=== PATIENT | female | born 1975 | race Caucasian/White ===

== ENCOUNTER → 2017-04-29 | Day surgery (SDC) | payer OTHER ==
[~2017-04-29] MED LIST: BUPIVACAINE/EPINEPHRINE 0.5% 50 ML VIAL ONE; HEPARIN SODIUM - IV 10,000 UNITS/10 ML VIAL ONE; LACTATED RINGER'S 1000 ML INJ 1,000 ML ONE; MIDAZOLAM HCL 2 MG/2 ML VIAL ONE; PROPOFOL 200 MG/20 ML AMP IV ONE; SODIUM CHLORIDE 0.9% INJ 10 ML ONE; ceFAZolin 2 GM PREMIX 50 ML ONE
--- NOTE | 2017-04-29 13:59 | TN ---
cc: CLAUDETTE BLACKMAN M.D. DATE OF SURGERY: 04/29/2017 PREOPERATIVE DIAGNOSIS Left breast cancer. POSTOPERATIVE DIAGNOSIS Left breast cancer. PROCEDURE PERFORMED Left subclavian [id number]-M-[id number] with intraoperative fluoroscopy. SURGEON Claudette Blackman MD ANESTHESIA TIVA with local. COMPLICATIONS None. INDICATION FOR PROCEDURE Crystal is a very pleasant 42-year-old female who unfortunately has a left breast cancer. She was seen and evaluated. Because of her tumor type and her age she was offered neoadjuvant chemotherapy. The patient was seen by Dr. Montse Be who agreed. She requested Qgpnve-S-Nsoa placement for chemotherapy. Risks and benefits of [id number]-T-[id number] placement was discussed with the patient and she was agreeable. DETAILS OF PROCEDURE The patient was identified, brought to the operating room and placed supine on the operating table. After adequate IV sedation was achieved the anterior chest and neck was prepped and draped in standard surgical fashion. 0.25% Marcaine was injected in the skin and subcutaneous tissue in the subclavian area. A 18 gauge needle was then used to access the left subclavian vein without difficulty. Guidewire was introduced and followed to the level of the superior vena cava using direct fluoroscopy. Next, a subcutaneous pocket was fashioned in the left anterior chest using blunt and sharp dissection. Introducer was then placed over the guidewire and again followed with direct fluoroscopy into the superior vena cava. Guidewire was then removed and catheter inserted. Catheter was advanced to about 20 cm which put it at the junction of the superior vena cava in the right atrium. The catheter was then attached to the port with a locking device. Port was then tested, found to have excellent blood return, easy ability to flush. The port was placed into the subcutaneous pocket and secured with a 2-0 Prolene suture. Pocket was injected with additional local anesthetic and then closed in two layers using a 4-0 Vicryl. Sterile dressings were applied and the patient was awakened, brought to recovery in stable condition. The patient will be taken for a chest x-ray in the recovery room. MD MICHELLE Rodriguez/[place] /10:02 AM /1:50 PM
== END | disposition home or self-care (01) ==
LOC: ESDC 07:27
PROVIDERS: ATTEND Surgery Trauma Surgery
DX: C50.912 Malignant neoplasm of unspecified site of left female breast (principal)
CPT/HCPCS: 00532; 36561; 77001; C1788; J0690; J1642; J2250; J3010; J7120; J1644